=== PATIENT | female | born 1985 | race Caucasian/White ===

== ENCOUNTER 2022-07-13 03:03 | Emergency (ER) | payer OTHER ==
[~2022-07-13] VITALS: Ht 152.4 cm; Wt 106.6 kg
[~2022-07-13 03:03] MED LIST: BENZ-13 PO; CODE10LI PO
[2022-07-13 04:27] VITALS: BP 127/79
== END 2022-07-13 04:55 | disposition home or self-care (01) ==
LOC: ER 03:03
DX: O9A.212 Injury, poisoning and certain other consequences of external causes complicating pregnancy, second trimester (principal); Z3A.18 18 weeks gestation of pregnancy; M25.552 Pain in left hip; M54.9 Dorsalgia, unspecified; V49.49XA Driver injured in collision with other motor vehicles in traffic accident, initial encounter; Y92.414 Local residential or business street as the place of occurrence of the external cause
CPT/HCPCS: A4663